=== PATIENT | female | born 1950 | race Caucasian/White ===

== ENCOUNTER → 2020-10-19 | Outpatient (CLI) | payer OTHER ==
[~2020-10-19] MED LIST: BENA5TAB3 PO; OMNIPAQUE 350 MG/ML, 100ML BOTTLE ONE; SIMV5TAB14 PO
== END | disposition home or self-care (01) ==
LOC: CFH 09:21
PROVIDERS: ATTEND Family Medicine
DX: D35.02 Benign neoplasm of left adrenal gland (principal); K57.32 Diverticulitis of large intestine without perforation or abscess without bleeding; M51.37 Other intervertebral disc degeneration, lumbosacral region
CPT/HCPCS: 74177; 82565; Q9967